=== PATIENT | male | born 1995 | race Hispanic/Latino ===

== ENCOUNTER 2020-02-17 02:24 | Emergency (ER) | payer BC ==
[2020-02-17] MEDS ORDERED: Lidocaine Viscous Sol 2% 15 ml UD Cup ONE (04:07)
[2020-02-17] MEDS ORDERED: Mag-Al 1200 mg/1200 mg/30 ML UDCUP ONE (04:08)
--- NOTE | 2020-02-17 09:09 | RAD ---
CHEST 1 VIEW: INDICATION: Chest pressure and shortness of breath. COMPARISON: None. IMPRESSION: Low lung volumes. No acute airspace opacity, pleural effusion, or pneumothorax. Heart size is withi n normal limits. No acute osseous abnormality is noted. POS: BH
--- NOTE | 2020-02-22 10:17 | EKG ---
Test Reason : Blood Pressure : / mmHG Vent. Rate : 061 BPM Atrial Rate : 061 BPM P-R Int : 188 ms QRS Dur : 094 ms QT Int : 374 ms P-R-T Axes : 045 044 043 degrees QTc Int : 376 ms Normal sinus rhythm with sinus arrhythmia Normal ECG Confirmed by LYLA WILCOX ([id number]), editor managing newspaper NATHAN SALAZAR ([id number]) on 02/22/2020 10:17:30 AM Referred By: Confirmed By:LYLA WILCOX
== END 2020-02-17 04:43 | disposition home or self-care (01) ==
LOC: ERS 02:24
DX: R07.9 Chest pain, unspecified (principal)
CPT/HCPCS: 71045; 93005